=== PATIENT | female | born 1995 | race American Indian/Alaskan Native ===

== ENCOUNTER 2022-01-27 19:44 | Emergency (ER) | payer SELFPAY ==
[2022-01-27 20:13] VITALS: BP 121/76
== END 2022-01-28 09:52 | disposition left against medical advice (07) ==
LOC: ED 19:44
DX: O26.891 Other specified pregnancy related conditions, first trimester (principal); M54.50 Low back pain, unspecified; Z3A.10 10 weeks gestation of pregnancy; Z53.21 Procedure and treatment not carried out due to patient leaving prior to being seen by health care provider